=== PATIENT | male | born 1960 | race Caucasian/White ===

== ENCOUNTER 2021-05-23 10:15 | Outpatient (CLI) | payer OTHER ==
--- NOTE | 2021-05-23 13:17 | Magnetic Resonance Report ---
MRI LEFT SHOULDER WITHOUT CONTRAST INDICATION / CLINICAL INFORMATION: UNSPECIFIED ROTATOR CUFF TEAR OR RUPTURE OF LEFT SHOULDER. TECHNIQUE: Multiplanar, multisequence MR images were obtained. No contrast used. COMPARISON: None available. FINDINGS: SUPRASPINATUS: Mild tendinosis without tear INFRASPINATUS: Mild tendinosis without tear SUBSCAPULARIS: No significant abnormality. BICEPS TENDON, LONG HEAD: No significant abnormality. GLENOID LABRUM: No significant abnormality. ARTICULAR CARTILAGE: No significant abnormality. JOINT SPACE / CAPSULE: Moderate thickening of inferior joint capsule with pericapsular edema and mode rate synovitis of rotator interval. ACROMION / A.C. JOINT: Moderate DJD of the AC joint including distal clavicular osteophytes resulting in moderate encroachment. Mild lateral downsloping of acromion as well. SUBACROMIAL/SUBDELTOID SPACE: No significant abnormality. BONES: No significant bone marrow edema. No fracture. No osseous lesion. 1.2 x 1.1 cm T2 hyperintens e lesion in subcutaneous tissues of posterior shoulder, possibly sebaceous cysts. SOFT TISSUES: No significant abnormality. ADDITIONAL FINDINGS: None. IMPRESSION: 1. Rotator cuff tendinosis without tear. 2. 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 3. Please correlate for signs and symptoms of adhesive capsulitis Report dictated by: Chandra Simms MD Report dictated on: 05/23/2021 11:55 AM I have reviewed the images, agree with this report, and edited this report as needed. Signer Name: Patrick Roberson MD Signed: 05/23/2021 1:13 PM Workstation Name: [id number]
== END 2021-05-23 10:16 | disposition home or self-care (01) ==
LOC: MRI 10:15
PROVIDERS: ATTEND Internal Medicine
DX: M19.012 Primary osteoarthritis, left shoulder (principal); M75.102 Unspecified rotator cuff tear or rupture of left shoulder, not specified as traumatic; M77.8 Other enthesopathies, not elsewhere classified